=== PATIENT | female | born 1985 | race Caucasian/White ===

== ENCOUNTER 2017-05-01 19:30 | Emergency (ER) | payer SELFPAY ==
[2017-05-01 19:31] VITALS: BMI 32.6
[2017-05-01 19:36] VITALS: BP 116/78; PULSE 80; RESP 16; TEMP 98.6; O2SAT 97
--- NOTE | 2017-05-01 19:59 | ED PDOC ---
Arrival/HPI - General Chief Complaint: Trauma Time Seen by Provider: 05/01/17 19:43 Historian: Patient - History of Present Illness Narrative History of Present Illness (Text): 05/01/17 19:59 A 31 year old female, with no significant past medical history, presents to the emergency department complaining of headache discomfort since yesterday. Patient reports obtaining head injury from being hit by a basketball yesterday. Patient did not seek medical attention and only felt dazed at the time. Today, however, patient began experiencing discomfort and became concerned, resulting in seeking medical attention. Patient denies any loss of consciousness, head trauma, visual changes, nausea, or vomiting. Patient has no other complaints. No PMD Time/Duration: 24 hours Symptom Onset: Sudden Symptom Course: Unchanged Past Medical History - Provider Review Nursing Documentation Reviewed: Yes - Infectious Disease Hx of Infectious Diseases: None - Psychiatric Hx Substance Use: No Family/Social History - Physician Review Nursing Documentation Reviewed: Yes Family/Social History: No Known Family HX Smoking Status: Never Smoked Hx Alcohol Use: No Hx Substance Use: No Allergies/Home Meds Allergies/Adverse Reactions: Allergies No Known Allergies Allergy (Verified 05/01/17 19:31) Home Medications: Home Meds Medication Instructions Recorded Confirmed No Known Home Med 05/01/17 05/01/17 Review of Systems - Physician Review All systems were reviewed & negative as marked: Yes - Review of Systems Eyes: absent: Vision Changes Cardiovascular: absent: Syncope (no loss of consciousness) Gastrointestinal: absent: Nausea, Vomiting Neurological: Headache (headache discomfort secondary to basketball head injury obtained yesterday) Physical Exam Vital Signs Reviewed: Yes Vital Signs Temp Pulse Resp BP Pulse Ox 05/01/17 19:30 98.6 F 80 16 116/78 97 Temperature: Afebrile Blood Pressure: Normal Pulse: Regular Respiratory Rate: Normal Appearance: Positive for: Well-Appearing, Non-Toxic, Comfortable Pain Distress: None Mental Status: Positive for: Alert and Oriented X 3 - Systems Exam Head: Present: Atraumatic, Normocephalic Pupils: Present: PERRL Extroacular Muscles: Present: EOMI Conjunctiva: Present: Normal Mouth: Present: Moist Mucous Membranes Neck: Present: Normal Range of Motion Respiratory/Chest: Present: Clear to Auscultation, Good Air Exchange. No: Respiratory Distress, Accessory Muscle Use Cardiovascular: Present: Regular Rate and Rhythm, Normal S1, S2. No: Murmurs Abdomen: Present: Normal Bowel Sounds. No: Tenderness, Distention, Peritoneal Signs Back: Present: Normal Inspection Upper Extremity: Present: Normal Inspection, Normal ROM, NORMAL PULSES, Neurovascularly Intact. No: Cyanosis, Edema Lower Extremity: Present: Normal Inspection. No: Edema Neurological: Present: GCS=15, CN II-XII Intact, Speech Normal, Motor Func Grossly Intact, Normal Sensory Function, Normal Cerebellar Funct, Norm Deep Tendon Reflexes Skin: Present: Warm, Dry, Normal Color. No: Rashes Psychiatric: Present: Alert, Oriented x 3, Normal Insight, Normal Concentration Medical Decision Making ED Course and Treatment: 05/01/17 20:05 Impression: 31 year old female with headache discomfort. Normal physical exam. Plan: -- Head CT -- Tylenol -- Reassess and disposition Progress Notes: 05/01/17 21:35 Pt. eloped from ED prior to undergoing CT Head exam. - Medication Orders Current Medication Orders: Discontinued Medications Acetaminophen (Tylenol 325mg Tab) 650 mg PO STAT STA Stop: 05/01/17 20:00 Last Admin: 05/01/17 20:09 Dose: 650 mg Furosemide (Lasix) Confirm Administered Dose 40 mg .ROUTE .STK-MED ONE Stop: 05/02/17 03:11 - Scribe Statement The provider has reviewed the documentation as recorded by the Allie Lees Provider Scribe Attestation: All medical record entries made by the Scribe were at my direction and personally dictated by me. I have reviewed the chart and agree that the record accurately reflects my personal performance of the history, physical exam, medical decision making, and the department course for this patient. I have also personally directed, reviewed, and agree with the discharge instructions and disposition. Disposition/Present on Arrival - Present on Arrival Any Indicators Present on Arrival: No History of DVT/PE: No History of Uncontrolled Diabetes: No Urinary Catheter: No History of Decub. Ulcer: No History Surgical Site Infection Following: None - Disposition Have Diagnosis and Disposition been Completed?: Yes Diagnosis: Head injury Disposition: ELOPEMENT - ER ONLY Disposition Time: 21:35 Condition: STABLE Forms: [employer] ([employer])
== END 2017-05-01 21:35 | disposition left against medical advice (07) ==
LOC: ED 19:30
DX: S09.90XA Unspecified injury of head, initial encounter (principal); W21.05XA Struck by basketball, initial encounter